=== PATIENT | female | born 1970 | race Caucasian/White ===

== ENCOUNTER 2020-06-22 15:10 | Emergency (ER) | payer MEDICAID ==
[2020-06-22] MEDS ORDERED: Sodium Chloride 0.9% 1,000 ML IV ONE (16:27)
[2020-06-22] MEDS ORDERED: Ondansetron 4 MG/2 ML SDV IVPUSH ONE (16:29)
[2020-06-22] MEDS ORDERED: Ketorolac 30 MG/ML SDV IVPUSH ONE (16:29)
--- NOTE | 2020-06-22 16:35 | EDM.PDOC ---
<Demond Felder - Last Filed: 06/23/20 02:56> ED HPI GENERAL MEDICAL PROBLEM - General Chief Complaint: Abdominal Pain Stated Complaint: ABD PAIN Time Seen by Provider: 06/22/20 16:18 - Related Data Allergies Allergy/AdvReac Type Severity Reaction Status Date / Time No Known Allergies Allergy Verified 06/22/20 15:56 Home Meds: Home Meds NK [No Known Home Meds] 06/22/20 [History] Course - Re-Assessments/Exams Free Text/Narrative Re-Assessment/Exam: 06/22/20 22:54 Care turned over from Dr. Cantrell, after CT and ultrasound reports were back STAFF FIELD ENGINEER surgery was consulted in [place]. Dr. Mary kindly accepted transfer the patient for surgical consultation and treatment Departure - Departure Time of Disposition: 00:14 Disposition: DC/Tfer to [facility] Clinical Impression: Ovarian mass, right Abdominal pain Qualifiers: Abdominal location: left lower quadrant Qualified Code(s): R10.32 - Left lower quadrant pain Uterine fibroid Qualifiers: Uterine leiomyoma location: intramural, submucous, and subserous Qualified Co de(s): D25.1 - Intramural leiomyoma of uterus - Discharge Information Referrals: PCP,None [Primary Care Provider] - Forms: ED Department Discharge Care Plan Goals: Patient was sent to [facility] for direct admission for STAFF FIELD ENGINEER consultation and evaluation for further treatment for pelvic mass and pain along with chronic bleeding. <Bayron Cantrell - Last Filed: 06/23/20 07:24> ED HPI GENERAL MEDICAL PROBLEM - General Source of Information: Reports: Patient History Limitations: Reports: No Limitations - History of Present Illness INITIAL COMMENTS - FREE TEXT/NARRATIVE: Patient presents for evaluation of lower abdominal pain that came on 3 days ago and has persisted. She had pain similar to this many many years ago but nothing recently. Nothing she can pinpoint that would have started it off. It is somewhat more uncomfortable in the left lower quadrant but she is tender all the way across the lower part of the abdomen. Positions of comfort include lying on her right side, supine positioning, sitting. Standing and walking as well as lying on her left side is very uncomfortable. She has had much to eat in the last couple of days because she is concerned that she will not keep food down. She has had some minor vomiting episodes, which she calls dry heaves, and not much comes up because she has not put much down. Some softer stools. Nothing has really improved her state. She had a Molly fundoplication many years ago and so it is unusual for her to vomit although the nausea feeling is quite significant. Because of persistence of symptoms and lack of improvement, she presented today. Onset: Gradual Duration: Day(s): (3) Location: Reports: Abdomen (Lower) Severity: Moderate Improves with: Reports: None Worsens with: Reports: Movement Associated Symptoms: Reports: Loss of Appetite, Nausea/Vomiting, Other (Strange taste sensation in her mouth.) Past Medical History - Past Surgical History GI Surgical History: Reports: Appendectomy, Molly Fundoplication Female Surgical History: Reports: Oophorectomy Social & Family History - Tobacco Use Tobacco Use Status *Q: Never Tobacco User ED ROS GENERAL - Review of Systems Review Of Systems: See Below Constitutional: Reports: Chills, Malaise, Weakness, Decreased Appetite. Denies: Fever HEENT: Reports: Other (Altered taste sensation but no loss of taste or smell.) Respiratory: Reports: No Symptoms Cardiovascular: Reports: Palpitations Endocrine: Reports: Fatigue GI/Abdominal: Reports: Abdominal Pain, Nausea. Denies: Vomiting : Reports: No Symptoms. Denies: Dysuria, Frequency Musculoskeletal: Reports: Other (Right flank/CVA pain.) Skin: Reports: No Symptoms ED EXAM, GI/ABD - Physical Exam Exam: See Below Text/Narrative:: This is an adult female interviewed in room 5. She is lying on her right side when I enter the room and turns to the supine position with hips and knees flexed. Exam Limited By: No Limitations General Appearance: Anxious, Moderate Distress Head: Normocephalic Neck: Supple Respiratory/Chest: No Respiratory Distress Cardiovascular: Tachycardia GI/Abdominal Exam: Soft, Tender (Mostly the entire lower abdomen, worse in left lower quadrant. There is some intermittently reproducible pain when palpating the right upper quadrant. There is some minimal pain on palpation along the right flank and CVA area.), Abnormal Bowel Sounds (Frequent bowel sounds in all quadrants.) Back Exam: No: CVA Tenderness (R) Extremities: Normal Inspection, Normal Range of Motion Psychiatric: Anxious Course - Vital Signs Last Recorded V/S: Last Vital Signs Temp 37.1 C 06/22/20 16:03 Pulse 94 06/22/20 21:28 Resp 18 06/22/20 21:28 BP 96/55 L 06/22/20 21:28 Pulse Ox 98 06/22/20 21:28 - Orders/Labs/Meds Orders: Active Orders 24 hr Category Date Time Status Transvaginal Non OB [US] Routine Exams 06/22/20 20:11 Taken VL Duplex Abd Pel Ret Ltd [US] Routine Exams 06/22/20 20:11 Taken Saline Lock Insert [OM.PC] Routine Oth 06/22/20 16:27 Ordered Labs: Laboratory Tests 06/22/20 06/22/20 06/22/20 Range/Units 16:26 16:26 19:00 WBC 11.8 H (4.5-11.0) K/uL RBC 3.88 (3.30-5.50) M/uL Hgb 10.5 L (12.0-15.0) g/dL Hct 33.5 L (36.0-48.0) % MCV 86 (80-98) fL MCH 27 (27-31) pg MCHC 31 L (32-36) % Plt Count 323 (150-400) K/uL Neut % (Auto) 83 H (36-66) % Lymph % (Auto) 9 L (24-44) % Baca % (Auto) 8 H (2-6) % Eos % (Auto) 0 L (2-4) % Baso % (Auto) 0 (0-1) % Sodium 131 L (140-148) mmol/L Potassium 3.7 (3.6-5.2) mmol/L Chloride 93 L (100-108) mmol/L Carbon Dioxide 28 (21-32) mmol/L Anion Gap 13.7 (5.0-14.0) mmol/L BUN 9 (7-18) mg/dL Creatinine 0.8 (0.6-1.0) mg/dL Est Cr Clr Drug Dosing 71.14 mL/min Estimated GFR (MDRD) > 60 (>60) Glucose 128 H (74-106) mg/dL Calcium 8.6 (8.5-10.1) mg/dL Total Bilirubin 1.7 H (0.2-1.0) mg/dL AST 23 (15-37) U/L ALT 26 (12-78) U/L Alkaline Phosphatase 126 H (46-116) U/L C-Reactive Protein 20.47 H (0.0-0.3) mg/dL Total Protein 7.1 (6.4-8.2) g/dL Albumin 3.3 L (3.4-5.0) g/dL Globulin 3.8 H (2.3-3.5) g/dL Albumin/Globulin Ratio 0.9 L (1.2-2.2) Lipase 48 L (73-393) U/L Urine Color Other A (YELLOW) Urine Appearance Clear (CLEAR) Urine pH 6.0 (5.0-8.0) Ur Specific Thurman < 1.005 L (1.008-1.030) Urine Protein Negative (NEGATIVE) mg/dL Urine Glucose (UA) Negative (NEGATIVE) mg/dL Urine Ketones 15 H (NEGATIVE) mg/dL Urine Occult Blood Moderate (NEGATIVE) Urine Nitrite Negative (NEGATIVE) Urine Bilirubin Negative (NEGATIVE) Urine Urobilinogen 1.0 (0.2-1.0) EU/dL Ur Leukocyte Esterase Negative (NEGATIVE) Urine RBC 0-5 (0-5) Urine WBC 0-5 (0-5) Ur Epithelial Cells Moderate Urine Bacteria Not seen Meds: Medications Discontinued Medications Generic Name Dose Route Start Last Admin Trade Name Walterq PRN Reason Stop Dose Admin Hydromorphone HCl 0.5 mg 06/22/20 18:13 06/22/20 18:36 Dilaudid IVPUSH 06/22/20 18:14 0.5 mg ONETIME ONE Administration Hydromorphone HCl 0.5 mg 06/22/20 21:20 06/22/20 21:26 Dilaudid IVPUSH 06/22/20 21:21 0.5 mg ONETIME ONE Administration Sodium Chloride 1,000 mls @ 500 mls/hr 06/22/20 16:27 06/22/20 17:13 Normal Saline IV 06/22/20 18:26 500 mls/hr .BOLUS ONE Administration Sodium Chloride 80 mls @ 3 mls/sec 06/22/20 16:45 06/22/20 16:51 Normal Saline IV 3 mls/sec ASDIRECTED HOME Administration Iopamidol 100 ml 06/22/20 16:45 06/22/20 16:51 Isovue-300 (61%) IV 100 ml . DIRECTED HOME Administration Ketorolac Tromethamine 30 mg 06/22/20 16:29 06/22/20 16:42 Toradol IVPUSH 06/22/20 16:30 30 mg ONETIME ONE Administration Ondansetron HCl 4 mg 06/22/20 16:29 06/22/20 16:42 Zofran IVPUSH 06/22/20 16:30 4 mg ONETIME ONE Administration Sodium Chloride 10 ml 06/22/20 16:27 06/22/20 16:51 Saline Flush FLUSH 10 ml ASDIRECTED PRN Administration Keep Vein Open - Re-Assessments/Exams Free Text/Narrative Re-Assessment/Exam: 06/22/20 16:39 Patient will be given Zofran 4 mg and Toradol 30 mg both as IV doses along with normal saline at 500 mL/h. We will obtain a CT scan of the abdomen pelvis with contrast. Differential to include diverticulitis, gastroenteritis. 06/22/20 18:[address] scan with the radiologist by telephone. There is concern about a left ovarian mass, pancreatic mass and multiple areas of intra-abdominal stranding. Given her exam with which left lower quadrant pain was more pronounced and she cannot lie on that side, there is concern that there might be an element of left ovarian torsion giving her pain. An ultrasound will be obtained to look at that area in more detail. I discussed the findings with the patient and the potential seriousness of what has been noted so far. Her pain is somewhat better after the Toradol that I will give a dose of Dilaudid to improve pain further. Further disposition will depend on results of pelvic ultrasound. Case was endorsed to Dr. Felder at 1812 hrs. Sepsis Event Note (ED) - Evaluation Sepsis Screening Result: No Definite Risk - Focused Exam Vital Signs: Vital Signs Pulse Resp BP Pulse Ox 06/22/20 21:28 94 18 96/55 L 98 06/22/20 20:51 94 20 102/52 L 96 - My Orders Last 24 Hours: My Active Orders 06/22/20 16:27 Saline Lock Insert [OM.PC] Routine - Assessment/Plan Last 24 Hours: My Active Orders 06/22/20 16:27 Saline Lock Insert [OM.PC] Routine
[2020-06-22] MEDS: Sodium Chloride 0.9% 10 ML Syringe FLUSH PRN ×2 (16:42→16:51)
[2020-06-22] MEDS ORDERED: Iopamidol 612 MG/ML 100 ML Bottle IV SCH (16:45)
[2020-06-22] MEDS ORDERED: Sodium Chloride 0.9% 80 ML IV SCH (16:45)
--- NOTE | 2020-06-22 17:54 | CRLCT ---
INDICATION: Severe lower abdominal pain for 3 days. COMPARISON: None available TECHNIQUE: CT examination of the abdomen and pelvis was performed with the uneventful intravenous administration of 100 cc of Isovue-300 while 3 mm thick axial sections were obtained from the lung bases through the pubic symphysis. Oral contrast was not administered. Please note that all CT scans at this facility use dose modulation, iterative reconstruction, and/or weight-based dosing when appropriate to reduce radiation dose to as low as reasonably achievable. FINDINGS: In the abdomen, there is moderate dilatation of the common bile duct at 13 millimeters, with mild intrahepatic biliary ductal dilatation. The dilatation extends into the pancreatic head, with the distal common bile duct becomes normal in caliber at 5 millimeters. I cannot exclude a pancreatic head mass. Recommend correlation with the patient`s LFTs and possible MRCP or ERCP. The gallbladder is mildly dilated and is otherwise normal in appearance. The liver is otherwise normal in appearance. The spleen, pancreas, and adrenals are normal in appearance. The kidneys are normal in appearance. The abdominal aorta is normal in caliber with no sign of dilatation. There is no sign of retroperitoneal mass or adenopathy. There are surgical clips in the area of the GE junction along with a swirled appearance of this region consistent with fundoplication. There is no sign a recurrent hiatal hernia. There is moderate dilatation of the duodenum extending to the interspace between the SMA and aorta, where there is an abrupt decrease in caliber of the duodenum, suggesting SMA syndrome. The rest of the stomach, the rest of the loops of small bowel, and colon in the abdomen are normal in appearance. In the pelvis, the appendix is nonvisualized, but there is no sign of an inflammatory process in the area of the appendix. The left ovary is prominently enlarged by a dominant simple appearing cyst measuring 8.5 centimeters in diameter. This is probably an ovarian cystadenoma, although nodular margins inferiorly raise the possibility of an ovarian cystadenocarcinoma. I recommend that this be delivered in its entirety to reduce the possibility of peritoneal seeding of a possible malignancy. There is mild inflammatory stranding and a small amount of fluid around the enlarged left ovary and cystic structure, especially inferiorly where the rest of the ovary is located. There are numerous enhancing cysts in this portion of the ovary. It is possible that there is vascular compromise of the left ovary by the mass, with the possibility of torsion or secondary infection. The right ovary is mildly enlarged by several low-density regions consistent with multiple cysts. The largest cyst measures 1.2 centimeters in diameter, with the ovary measuring 4.5 by 2.9 by 4.8 centimeters. The uterus is mildly enlarged with multiple low-density nodules scattered throughout it, consistent with extensive fibroid degeneration. The uterus measures 5.8 x 5.4 centimeters in cross-section and 10.5 centimeters in length. The loops of small bowel in the left lower abdomen and pelvis are mildly dilated, but not frankly distended, and there is no dilatation of the more proximal small bowel. The dilatation extends to the cystic structure in the enlarged left ovary where the small bowel is decreased in caliber. This may represent a minimal small bowel obstruction by the ovarian mass. The loops of distal small bowel and colon in the pelvis are normal in appearance. The urinary bladder is normal in appearance. There is no sign of pelvic or inguinal mass or adenopathy. There is no sign of free air or free fluid in the abdomen or pelvis. The lung bases are clear. The osseous structures are normal in appearance for the patient`s age. I discussed the findings with Dr. Cantrell at 1740 hours on 06/22/2020. IMPRESSION: CT of the abdomen shows moderate dilatation of the common bile duct and mild intrahepatic biliary ductal dilatation, extending into the pancreatic head, where there is an abrupt decrease in caliber to 5 millimeters. Cannot exclude pancreatic head malignancy. Recommend correlation with the patient`s LFTs, ERCP, or MRCP. Dilatation of the duodenum extending to the junction of the 3rd and 4th portions, with abrupt decrease in caliber in the area of the SMA, consistent with SMA syndrome. CT of the pelvis shows prominent enlargement of the left ovary by a primarily cystic mass measuring 8.5 centimeters in diameter. While this is probably an ovarian cyst adenoma, nodularity along the inferior margin raises the possibility of a cystadenocarcinoma. Mild inflammatory stranding and small amount of fluid adjacent to the left ovarian mass and ovary, especially inferiorly. Enhancement of multiple small cystic regions in the left ovary inferior to the cystic mass. This is worrisome for torsion or possibly infection. Mild enlargement of the right ovary with multiple cysts. Mild enlargement of the uterus with multiple hypodense nodules consistent with diffuse fibroid degeneration. Please note that all CT scans at this facility use dose modulation, iterative reconstruction, and/or weight-based dosing when appropriate to reduce radiation dose to as low as reasonably achievable. Dictated by Ramiro Santoyo MD @ Jun 22 2020 5:16PM Signed by Dr. Ramiro Santoyo @ Jun 22 2020 5:53PM
[2020-06-22] MEDS ORDERED: HYDROmorphone 0.5 MG/0.5 ML Syringe IVPUSH ONE ×2 (18:13→21:20)
--- NOTE | 2020-06-25 09:05 | CRLUS ---
Final Report: INDICATION: Pelvic pain with vaginal spotting. History of removal of the left ovary from cysts. COMPARISON: CT of the abdomen and pelvis from today and ultrasound of the pelvis from 01/09/2017, and CT of the abdomen and pelvis from 05/25/2007. I did not have the previous ultrasound of the pelvis from [address] from 2006 for comparison when I interpreted the CT of the abdomen and pelvis earlier today. FINDINGS: Transvaginal and transabdominal ultrasound examination of the female pelvis was performed. Initial examination is performed with transabdominal technique and transvaginal technique is used for better visualization of the pelvic structures. The uterus is seen to be anteverted with numerous hypoechoic masses scattered throughout it consistent with multiple fibroids. The largest is in the left superior fundus measuring 3.4 x 3.5 by 2.7 centimeters. In the inferior right uterine body is a fibroid measuring 3.1 x 2.2 x 2.3 centimeters. The fibroids have increased in size and number compared to the previous ultrasound of 02/08/2017. The uterus now measures 9.9 x 7.3 x 5.0 centimeters, mildly enlarged, and slightly enlarged compared to the previous ultrasound from 2016 where it measured 9.2 x 5.0 x 5.9 centimeters. What I thought was the left ovary appears to be a subserosal fibroid measuring 2.3 x 3.1 centimeters. The endometrial lining is top normal in thickness at 8 mm. Incidental note is made of several nabothian cysts at the cervix. There is a dominant cyst arising from the upper pole of the right ovary measuring 8.4 x 7.1 x 7.9 centimeters. This corresponds to the cyst seen in the midline on the CT from today. This cyst is in direct continuity with the right ovary on CT, and in retrospect arises from the right ovary and not the left. The cyst appears to be simple, with no definite mass or septation on ultrasound, I am concerned that there are lobulations along the inferior margin on CT. The differential remains cystadenoma versus cystadenocarcinoma. The right ovary itself is mildly enlarged, measuring 4.6 x 2.3 centimeters. There are several simple cysts located within the right ovary, the largest measuring 1.4 centimeters in diameter. There is normal color and pulse Doppler flow in the right ovary. There is a tiny amount of free fluid in the cul-de-sac, probably physiologic. IMPRESSION: The dominant cystic structure seen on CT at the midline is seen to be a simple appearing cyst measuring 8.4 x 7.1 x 7.9 centimeters arising from the right ovary. With the lobulations of seen on CT along the inferior margin, the differential diagnosis remains cystadenoma versus cystadenocarcinoma. The right ovary itself remains mildly enlarged by several simple cysts. Normal color and pulse Doppler flow in the right ovary with no sign of torsion. Multiple fibroids resulting in mild enlargement uterus, slightly increased in size compared to the previous ultrasound from 2017. The left ovary is absent, consistent with history of left oophorectomy. Tiny amount of free fluid in the cul-de-sac, probably physiologic. Dictated by Ramiro Santoyo MD @ Jun 22 2020 8:25PM Signed by: Ramiro Santoyo MD @06/22/2020 8:43:29 PM (Electronic Signature) MTDD
== END 2020-06-23 00:15 ==
LOC: JP.ED 15:10
DX: N83.9 Noninflammatory disorder of ovary, fallopian tube and broad ligament, unspecified (principal); D25.1 Intramural leiomyoma of uterus
CPT/HCPCS: 36415; 74177; 76830; 76856; 80053; 81001; 83690; 85025; 86140; 93976; 96374; 96375; 96376; 99285; J1170; J1885; J2405; J7030; Q9967

== ENCOUNTER 2023-09-09 10:48 | Emergency (ER) | payer MEDICAID ==
[2023-09-09] MEDS: hydrOXYzine HCl 25 MG Tab PO ONE (11:45)
[2023-09-09 11:57] LABS: BASOPHILS ABSOLUTE AUTO 0.05 K/uL (0.00-0.10); BASOPHILS PERCENT AUTO 0.7 % (0.1-1.3); EOSINOPHILS ABSOLUTE AUTO 0.06 K/uL (0.00-0.40); EOSINOPHILS PERCENT AUTO 0.8 % (0.0-5.4); HEMATOCRIT 40.4 % (34.3-46.0); HEMOGLOBIN 13.1 g/dL (11.2-15.5); IMMATURE GRAN PERCENT AUTO 0.3 % (0.0-0.7); LYMPHOCYTES PERCENT AUTO 11.7 % (11.4-47.7); MEAN CORPUSCULAR HEMOGLOBIN 28.7 pg (31.6-35.5); MEAN CORPUSCULAR HGB CONC 32.4 g/dL (31.6-35.5); MEAN CORPUSCULAR VOLUME 88.6 fL (81.4-99.0); MONOCYTES ABSOLUTE AUTO 0.45 K/uL (0.20-0.90); MONOCYTES PERCENT AUTO 5.9 % (3.3-12.6); NEUTROPHILS PERCENT AUTO 80.6 % (40.0-78.1); PLATELET COUNT,PLT 408 K/uL (130-375); RED BLOOD CELL COUNT 4.56 M/uL (3.77-5.24); WHITE BLOOD CELL COUNT,WBC 7.7 K/uL (3.2-11.0)
[2023-09-09 12:09] LABS: IMMATURE GRAN ABSOLUTE AUTO 0.02 K/uL (0.00-0.23)
[2023-09-09 12:17] LABS: A/G RATIO 0.9 (1.2-2.2); ALANINE AMINOTRANSFERASE,ALT 73 U/L (12-78); ALBUMIN 3.8 g/dL (3.4-5.0); ALKALINE PHOSPHATASE 116 U/L (46-116); ASPARTATE AMNIOTRANSFERASE,AST 36 U/L (15-37); BILIRUBIN TOTAL 0.4 mg/dL (0.2-1.0); BLOOD UREA NITROGEN,BUN 8 mg/dL (7-18); CALCIUM 9.3 mg/dL (8.5-10.1); CARBON DIOXIDE,CO2 26 mmol/L (21-32); CHLORIDE,CL 97 mmol/L (100-108); CREATININE 1.1 mg/dL (0.6-1.0); EST CRCL DRUG DOSING (CG) 50.05 mL/min; ESTIMATED GFR 61 mL/min (>60); GLUCOSE RANDOM 280 mg/dL (74-106); PROTEIN TOTAL,TP 7.9 g/dL (6.4-8.2); SODIUM,NA 133 mmol/L (140-148)
[2023-09-09 12:32] LABS: APPEARANCE,URINE SLIGHTLY CLOUDY (CLEAR); BILIRUBIN,URINE NEGATIVE (NEGATIVE); COLOR,URINE YELLOW (YELLOW); GLUCOSE,URINE 250 mg/dL (NEGATIVE); KETONES,URINE TRACE mg/dL (NEGATIVE); LEUKOCYTE ESTERASE,URINE NEGATIVE (NEGATIVE); NITRITE,URINE NEGATIVE (NEGATIVE); OCCULT BLOOD,URINE NEGATIVE (NEGATIVE); PH,URINE 5.5 (5.0-8.0); PROTEIN,URINE NEGATIVE (NEGATIVE); UROBILINOGEN,URINE 0.2 EU/dL (0.2-1.0)
[2023-09-09 12:38] LABS: AMORPHOUS SEDIMENT,URINE MODERATE; BACTERIA,URINE MANY; EPITHELIAL CELLS,URINE MANY; MUCUS,URINE NOT SEEN; RBC,URINE 0-5 (0-5); WBC,URINE 0-5 (0-5)
== END 2023-09-09 13:44 | disposition home or self-care (01) ==
LOC: JP.ED 10:48
DX: F41.9 Anxiety disorder, unspecified (principal); F17.210 Nicotine dependence, cigarettes, uncomplicated; Z90.49 Acquired absence of other specified parts of digestive tract; Z79.899 Other long term (current) drug therapy
CPT/HCPCS: 36415; 80053; 81001; 81025; 83690; 85025; 99283; A9270

== ENCOUNTER 2024-04-12 06:00 | Emergency (ER) | payer SELFPAY ==
[2024-04-12 06:25] LABS: BASOPHILS PERCENT AUTO 0.5 % (0.1-1.3); EOSINOPHILS PERCENT AUTO 0.2 % (0.0-5.4); HEMATOCRIT 39.2 % (34.3-46.0); HEMOGLOBIN 14.2 g/dL (11.2-15.5); IMMATURE GRAN PERCENT AUTO 0.2 % (0.0-0.7); LYMPHOCYTES ABSOLUTE AUTO 1.11 K/uL (0.8-3.3); LYMPHOCYTES PERCENT AUTO 26.6 % (11.4-47.7); MEAN CORPUSCULAR HEMOGLOBIN 35.3 pg (31.6-35.5); MEAN CORPUSCULAR HGB CONC 36.2 g/dL (31.6-35.5); MEAN CORPUSCULAR VOLUME 97.5 fL (81.4-99.0); MONOCYTES ABSOLUTE AUTO 0.27 K/uL (0.20-0.90); MONOCYTES PERCENT AUTO 6.5 % (3.3-12.6); NEUTROPHILS ABSOLUTE AUTO 2.75 K/uL (1.0-7.6); PLATELET COUNT,PLT 189 K/uL (130-375); RED BLOOD CELL COUNT 4.02 M/uL (3.77-5.24); WHITE BLOOD CELL COUNT,WBC 4.2 K/uL (3.2-11.0)
[2024-04-12 06:30] LABS: BASOPHILS ABSOLUTE AUTO 0.02 K/uL (0.00-0.10); EOSINOPHILS ABSOLUTE AUTO 0.01 K/uL (0.00-0.40); IMMATURE GRAN ABSOLUTE AUTO 0.01 K/uL (0.00-0.23)
[2024-04-12 06:49] LABS: LACTIC ACID 1.5 mmol/L (0.4-2.0)
[2024-04-12 06:53] LABS: A/G RATIO 1.2 (1.2-2.2); ALANINE AMINOTRANSFERASE,ALT 87 U/L (12-78); ALBUMIN 4.4 g/dL (3.4-5.0); ALKALINE PHOSPHATASE 124 U/L (46-116); ANION GAP 12.2 mmol/L (5.0-14.0); ASPARTATE AMNIOTRANSFERASE,AST 165 U/L (15-37); BILIRUBIN TOTAL 1.3 mg/dL (0.2-1.0); BLOOD UREA NITROGEN,BUN 7 mg/dL (7-18); CALCIUM 9.3 mg/dL (8.5-10.1); CARBON DIOXIDE,CO2 27 mmol/L (21-32); CHLORIDE,CL 102 mmol/L (100-108); CREATININE 0.8 mg/dL (0.6-1.0); EST CRCL DRUG DOSING (CG) 68.05 mL/min; ESTIMATED GFR 89 mL/min (>60); GLUCOSE RANDOM 140 mg/dL (74-106); PROTEIN TOTAL,TP 8.1 g/dL (6.4-8.2); SODIUM,NA 141 mmol/L (140-148)
[2024-04-12] MEDS: Lactated Ringers 1,000 ML IV SCH (06:57)
[2024-04-12] MEDS: LORazepam 2 MG/ML SDV IVPUSH ONE (06:58)
== END 2024-04-12 09:25 | disposition home or self-care (01) ==
LOC: JP.ED 06:00
DX: F10.930 Alcohol use, unspecified with withdrawal, uncomplicated (principal); Z90.49 Acquired absence of other specified parts of digestive tract
CPT/HCPCS: 36415; 80053; 80307; 83605; 83690; 85025; 96361; 96374; 99284; J2060; J7120